=== PATIENT | male | born 1930 | race Caucasian/White ===

== ENCOUNTER 2016-08-13 12:42 | Emergency (ER) | payer OTHER ==
[~2016-08-13] VITALS: Ht 175.3 cm; Wt 59.0 kg
--- NOTE | ~2016-08-13 | EKG ---
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
[~2016-08-13 12:42] MED LIST: HYDROCHLOROTH12.5 MG PO; LISINOPRIL5 MG PO; PREDNISONE 5 MG5 MG; PRILOSEC 10MG C10 M1 PO; ZOCOR40 MG PO
[2016-08-13 13:34] LABS: ABSOLUTE NEUTROPHILS 3.3 thou/uL (1.4-8.2); BASOPHILS 0.5 % (0.0-2.0); EOSINOPHILS 0.8 % (0.0-3.0); HEMATOCRIT 39.5 % (42.0-52.0); HEMOGLOBIN 13.3 gm/dL (14.0-18.0); LYMPHOCYTES 30.6 % (24.0-44.0); MCH 32.2 pg (26.0-34.0); MCHC 33.8 g/dL (28.0-37.0); MCV 95.5 fL (80.0-100.0); MONOCYTES 10.3 % (1.0-8.0); PLATELET COUNT 182 thou/uL (150-400); POLYS 57.8 % (36.0-66.0); RBC 4.14 mil/uL (4.50-6.00); RDW 13.9 % (10.5-14.5); WBC 5.6 thou/uL (4.0-11.0)
[2016-08-13 13:35] LABS: MANUAL DIFF NO
[2016-08-13] MEDS ORDERED: ALENDRONATE SOD70 MG PO (13:46)
[2016-08-13] MEDS ORDERED: CALCIUM 500 +1 EAC4 PO (13:47)
[2016-08-13] MEDS ORDERED: VITAMIN B-12100 MC1 PO (13:47)
[2016-08-13 13:53] LABS: ANION GAP 8 mmol/L (7-16); BUN 20 mg/dL (7-18); CALCIUM 8.8 mg/dL (8.5-10.1); CHLORIDE 106 mmol/L (98-107); CO2 25 mmol/L (21-32); CREATININE 0.9 mg/dL (0.7-1.3); GLUCOSE 153 mg/dL (74-106); POTASSIUM 3.7 mmol/L (3.5-5.1); SODIUM 139 mmol/L (136-145)
[2016-08-13 14:00] LABS: LARGE PLATELETS FEW
[2016-08-13 14:03] LABS: TROPONIN-I < 0.04 ng/mL (<0.04-0.07)
[2016-08-13 14:42] VITALS: BP 148/58
== END 2016-08-13 14:16 | disposition home or self-care (01) ==
LOC: ER 12:42
PROVIDERS: Emergency Medicine
DX: R00.2 Palpitations (principal); F10.99 Alcohol use, unspecified with unspecified alcohol-induced disorder; Z90.89 Acquired absence of other organs; Z88.0 Allergy status to penicillin; Z88.8 Allergy status to other drugs, medicaments and biological substances; Z77.22 Contact with and (suspected) exposure to environmental tobacco smoke (acute) (chronic)